=== PATIENT | male | born 1995 | race Caucasian/White ===

== ENCOUNTER 2016-08-02 03:35 | Emergency (ER) | payer OTHER ==
[2016-08-02 03:13] LABS: BASOPHILS 0.4 %; BASOPHILS ABSOLUTE 0.04 10/3/uL (0.0-0.16); EOSINOPHILS 0.6 %; EOSINOPHILS ABSOLUTE 0.06 10/3/uL (0.0-0.53); ER CBC TAT 0 Hrs 02 Mins; HEMATOCRIT 49.2 % (40.0-51.0); HEMOGLOBIN 17.1 g/dL (13.6-17.8); IMMATURE GRANULOCYTES 0.3 %; IMMATURE GRANULOCYTES ABSOLUTE 0.03 10/3/uL (0.0-0.11); LYMPHOCYTES 47.8 %; LYMPHOCYTES ABSOLUTE 4.77 10/3/uL (0.67-4.30); MEAN CORPUS HGB CONC 34.8 g/dL (32.0-36.0); MEAN CORPUSCULAR HEMOGLOB 34.4 pg (26.0-34.0); MEAN PLATELET VOLUME 10.1 fL (9.2-13.0); MONOCYTES 6.5 %; MONOCYTES ABSOLUTE 0.65 10/3/uL (0.21-1.20); NEUTROPHILS 44.4 %; NEUTROPHILS ABSOLUTE 4.42 10/3/uL (2.02-8.40); PLATELET COUNT 313 10/3/uL (150-400); RBC DISTRIBUTION WIDTH 12.4 % (12.0-16.0); RED CELL COUNT 4.97 10/6/uL (4.7-6.1)
[2016-08-02 03:32] LABS: ALBUMIN 4.3 G/DL (3.5-5.0); ALCOHOL 235 MG/DL (0); ALKALINE PHOSPHATASE 92 U/L (45-117); BUN (BLOOD UREA NITROGEN) 12 MG/DL (6-23); CHLORIDE, SERUM 102 MMOL/L (96-112); CO2 (CARBON DIOXIDE) 25 MMOL/L (24-34); CREATININE 1.17 MG/DL (0.70-1.30); GFR AFRICAN AMERICAN 101 ML/MIN (>=60); GFR NON AFRICAN AMERICAN 87 ML/MIN (>=60); GLOBULIN 4.3 G/DL (2.5-4.1); GLUCOSE, SERUM 145 MG/DL (60-99); POTASSIUM, SERUM 3.2 MMOL/L (3.5-5.3); SALICYLATE 1.9 MG/DL (-); SGOT(AST) 156 U/L (5-40); SGPT(ALT) 227 U/L (5-65); SODIUM, SERUM 143 MMOL/L (135-148); TOTAL BILIRUBIN 0.2 MG/DL (0-1.2); TOTAL PROTEIN 8.6 G/DL (6.0-8.5)
[2016-08-02 03:33] LABS: ACETAMINOPHEN LEVEL (TYLENOL) < 2.0 MCG/ML (10.0-20.0)
[2016-08-02 03:37] LABS: MANUAL DIFF NO %
[2016-08-02 04:11] LABS: AMPHETAMINES (NOT ORD) NEG (NEG); BARBITURATES (NOT ORDERED NEG (NEG); BENZODIAZEPINES (NOT ORD) NEG (NEG); CANNABINOIDS (THC) NEG (NEG); COCAINE (NOT ORDERED) NEG (NEG); OPIATES NEG (NEG); PHENCYCLIDINE(PCP) NEG (NEG); TRICYCLICS NEG (NEG)
== END 2016-08-02 03:55 | disposition left against medical advice (07) ==
LOC: ER 03:35
PROVIDERS: Specialist
DX: F10.129 Alcohol abuse with intoxication, unspecified (principal); F17.200 Nicotine dependence, unspecified, uncomplicated
CPT/HCPCS: 80053; 80305; 80307; 85025; 99283